=== PATIENT | male | born 1970 | race Caucasian/White ===

== ENCOUNTER 2019-08-22 17:36 | Emergency (ER) | payer OTHER ==
[~2019-08-22] VITALS: Ht 172.7 cm; Wt 93.0 kg
[~2019-08-22 17:36] MED LIST: CARAFATE 1 GM TA1 G1 PO; FLEXERIL PO; LEVAQUIN 500 M500 M2 PO; LISINOPRIL10 MG PO; OMEPRAZOLE40 MG PO; PROTONIX40 M2 PO; TYLENOL EXTRA500 MG PO
[2019-08-22] MEDS ORDERED: CARAFATE1 GM PO (17:44)
[2019-08-22 19:17] VITALS: BP 126/93
--- NOTE | 2019-08-23 13:22 | EKG ---
[place] [address] ELECTROCARDIOGRAM REPORT Name: TAMRA WEBB [facility] [id number] Admission: 08/22/19 Attend Phys: Discharge: 08/22/19 Date of : 72 Report #: [id number] THIS REPORT FOR: //name// [facility] ED Test Date: 2019-08-22 Test Time: 17:47:57 Pat Name: TAMRA WEBB Department: Room: Gender: M Clinical Project Manager: : [id number] Requested By: Daphne Abraham Order Number: [id number] MD: Chidi Faustin Measurements Intervals [place] Rate: 67 P: 20 MA: 166 QRS: 76 QRSD: 107 T: 60 QT: 403 QTc: 426 Interpretive Statements Sinus rhythm Abnormal R-wave progression, late transition Compared to ECG 09/02/2017 00:00:52 Myocardial infarct finding no longer present Electronically Signed On 08-23-2019 13:22:18 CDT by Chidi Faustin [email or web address] <ELECTRONICALLY SIGNED> By: Chidi Faustin MD, [facility] 08/23/19 [id number] 46 Chidi Faustin MD, FAC /EPI
== END 2019-08-22 19:18 | disposition home or self-care (01) ==
LOC: M.ERS 17:36
DX: T18.108A Unspecified foreign body in esophagus causing other injury, initial encounter (principal); I10 Essential (primary) hypertension; M19.90 Unspecified osteoarthritis, unspecified site; Y92.89 Other specified places as the place of occurrence of the external cause

== ENCOUNTER 2019-12-16 21:06 | Emergency (ER) | payer OTHER ==
[~2019-12-16] VITALS: Ht 170.2 cm; Wt 94.3 kg
[~2019-12-16 21:06] MED LIST changes: +CARAFATE1 GM PO
[2019-12-16 21:45] LABS: URINE BILIRUBIN NEGATIVE (Negative); URINE BLOOD NEGATIVE (Negative); URINE CLARITY CLEAR; URINE COLOR YELLOW; URINE GLUCOSE-RANDOM NEGATIVE (Negative); URINE KETONES NEGATIVE (Negative); URINE LEUKOCYTES-REFLEX NEGATIVE (Negative); URINE NITRITE-REFLEX NEGATIVE (Negative); URINE PROTEIN NEGATIVE (Negative); URINE UROBILINOGEN 0.2 E.U./dl (0.2-1.0)
[2019-12-16 21:59] LABS: AMP/METHAMP POSITIVE (Negative); BARBITURATES Negative (Negative); BENZODIAZEPINES Negative (Negative); COCAINE Negative (Negative); METHADONE Negative (Negative); OPIATES Negative (Negative); PCP Negative (Negative); THC POSITIVE (Negative)
[2019-12-16 22:03] LABS: ABSOLUTE BASOPHILS 0.1 thou/uL (0.0-0.2); ABSOLUTE EOSINOPHILS 0.2 thou/uL (0.0-0.7); ABSOLUTE LYMPHOCYTES 3.4 thou/uL (0.8-5.3); ABSOLUTE MONOCYTES 1.2 thou/uL (0.0-1.2); ABSOLUTE NEUTROPHILS 4.5 thou/uL (1.6-8.1); BASOPHILS 1.3 %; EOSINOPHILS 1.9 %; HEMATOCRIT 47.2 % (42.0-52.0); HEMOGLOBIN 16.2 gm/dL (14.0-18.0); LYMPHOCYTES 36.6 %; MCH 28.3 pg (26.0-34.0); MCHC 34.3 g/dL (28.0-37.0); MCV 82.4 fL (80.0-100.0); MONOCYTES 12.5 %; MPV 8.1 fl. (7.2-11.1); NUCLEATED RBCS 0 /100WBC; PLATELET COUNT* 317 thou/uL (150-400); POLYS 47.7 %; RBC 5.72 mil/uL (4.50-6.00); RDW-CV 13.1 % (10.5-14.5); WBC 9.4 thou/uL (4.0-11.0)
[2019-12-16 22:11] LABS: CALCIUM 8.4 mg/dL (8.5-10.1); CREATININE 1.2 mg/dL (0.6-1.3); POTASSIUM 4.1 mmol/L (3.5-5.1); TOTAL BILIRUBIN 0.5 mg/dL (<0.1-1.0); TOTAL PROTEIN 7.7 g/dL (6.4-8.2)
[2019-12-16 22:56] VITALS: BP 125/85
== END 2019-12-16 22:57 | disposition home or self-care (01) ==
LOC: M.ERS 21:06
PROVIDERS: Personal Emergency Response Attendant
DX: F15.10 Other stimulant abuse, uncomplicated (principal); H57.13 Ocular pain, bilateral; I10 Essential (primary) hypertension; M19.90 Unspecified osteoarthritis, unspecified site

== ENCOUNTER 2020-08-05 11:02 | Emergency (ER) | payer OTHER ==
[~2020-08-05] VITALS: Ht 172.7 cm; Wt 95.3 kg
[2020-08-05] MEDS ORDERED: NORCO 5-325 TA1 EAC2 PO (11:28)
[2020-08-05] MEDS ORDERED: AMOXICILLIN 50500 MG PO (11:28)
[2020-08-05] MEDS ORDERED: CIPROFLOXIN HC2.5 M1 OTIC (11:34)
[2020-08-05 12:01] VITALS: BP 132/70
== END 2020-08-05 12:02 | disposition home or self-care (01) ==
LOC: M.ERS 11:02
DX: H60.91 Unspecified otitis externa, right ear (principal); H66.91 Otitis media, unspecified, right ear; I10 Essential (primary) hypertension; M19.90 Unspecified osteoarthritis, unspecified site

== ENCOUNTER 2020-08-06 12:18 | Emergency (ER) | payer OTHER ==
[~2020-08-06] VITALS: Ht 172.7 cm; Wt 95.3 kg
[~2020-08-06 12:18] MED LIST changes: +AMOXICILLIN 50500 MG PO; +CIPROFLOXIN HC2.5 M1 OTIC; +NORCO 5-325 TA1 EAC2 PO
[2020-08-06 12:22] VITALS: BP 186/88
== END 2020-08-06 12:51 | disposition home or self-care (01) ==
LOC: M.ERS 12:18
DX: H60.91 Unspecified otitis externa, right ear (principal); I10 Essential (primary) hypertension; M19.90 Unspecified osteoarthritis, unspecified site

== ENCOUNTER 2020-08-08 15:44 | Emergency (ER) | payer OTHER ==
[~2020-08-08] VITALS: Ht 172.7 cm; Wt 95.3 kg
[2020-08-08 15:54] VITALS: BP 148/86
[2020-08-08] MEDS ORDERED: BACTRIM DS TAB1 EACH PO (16:10)
[2020-08-08] MEDS ORDERED: CORTISPORIN OTI10 M2 OTIC (16:10)
[2020-08-08] MEDS ORDERED: NORCO 5-325 TA1 EAC2 PO (16:10)
== END 2020-08-08 16:45 | disposition home or self-care (01) ==
LOC: M.ERS 15:44
DX: H60.11 Cellulitis of right external ear (principal); H60.01 Abscess of right external ear; I10 Essential (primary) hypertension; M19.90 Unspecified osteoarthritis, unspecified site

== ENCOUNTER 2020-08-27 02:23 | Emergency (ER) | payer OTHER ==
[~2020-08-27] VITALS: Ht 172.7 cm; Wt 93.9 kg
[~2020-08-27 02:23] MED LIST changes: +BACTRIM DS TAB1 EACH PO; +CORTISPORIN OTI10 M2 OTIC
[2020-08-27] MEDS ORDERED: BENADRYL25 MG PO (02:57)
[2020-08-27] MEDS ORDERED: NORCO 5-325 TA1 EAC2 PO (05:02)
[2020-08-27 05:26] VITALS: BP 116/74
== END 2020-08-27 05:28 | disposition home or self-care (01) ==
LOC: M.ERS 02:23
DX: S62.111A Displaced fracture of triquetrum [cuneiform] bone, right wrist, initial encounter for closed fracture (principal); R07.89 Other chest pain; M19.90 Unspecified osteoarthritis, unspecified site; I10 Essential (primary) hypertension; V89.9XXA Person injured in unspecified vehicle accident, initial encounter; Y93.89 Activity, other specified; Y92.89 Other specified places as the place of occurrence of the external cause; Y99.8 Other external cause status

== ENCOUNTER 2020-09-05 04:58 | Emergency (ER) | payer OTHER ==
[~2020-09-05] VITALS: Ht 172.7 cm; Wt 93.0 kg
[~2020-09-05 04:58] MED LIST changes: +BENADRYL25 MG PO
[2020-09-05 06:23] VITALS: BP 151/95
== END 2020-09-05 06:26 | disposition home or self-care (01) ==
LOC: M.ERS 04:58
DX: M25.531 Pain in right wrist (principal); R07.81 Pleurodynia; I10 Essential (primary) hypertension; M19.90 Unspecified osteoarthritis, unspecified site; V29.9XXA Motorcycle rider (driver) (passenger) injured in unspecified traffic accident, initial encounter; Y93.89 Activity, other specified; Y92.89 Other specified places as the place of occurrence of the external cause; Y99.8 Other external cause status

== ENCOUNTER 2021-04-25 13:47 | Emergency (ER) | payer OTHER ==
[~2021-04-25] VITALS: Ht 170.2 cm; Wt 93.4 kg
[2021-04-25] MEDS ORDERED: APAP W/CODEINE1 TA2 PO (14:39)
[2021-04-25 14:58] VITALS: BP 153/88
== END 2021-04-25 14:59 | disposition home or self-care (01) ==
LOC: M.ERS 13:47
DX: M25.511 Pain in right shoulder (principal); M19.90 Unspecified osteoarthritis, unspecified site; I10 Essential (primary) hypertension

== ENCOUNTER 2021-06-13 11:43 | Emergency (ER) | payer OTHER ==
[~2021-06-13] VITALS: Ht 170.2 cm; Wt 93.0 kg
[~2021-06-13 11:43] MED LIST changes: +APAP W/CODEINE1 TA2 PO
[2021-06-13] MEDS ORDERED: CEPHALEXIN500 MG PO (12:01)
[2021-06-13] MEDS ORDERED: CENTANY30 GM TOP (12:01)
[2021-06-13 12:19] VITALS: BP 111/86
== END 2021-06-13 12:19 | disposition home or self-care (01) ==
LOC: M.ERS 11:43
DX: L73.9 Follicular disorder, unspecified (principal); I10 Essential (primary) hypertension

== ENCOUNTER 2021-11-07 09:16 | Emergency (ER) | payer OTHER ==
[~2021-11-07 09:16] MED LIST changes: +CENTANY30 GM TOP; +CEPHALEXIN500 MG PO
== END 2021-11-07 10:00 | disposition left against medical advice (07) ==
LOC: M.ERS 09:16
DX: M79.641 Pain in right hand (principal); Z53.21 Procedure and treatment not carried out due to patient leaving prior to being seen by health care provider

== ENCOUNTER 2021-11-09 04:22 | Inpatient (IN) | payer OTHER ==
[~2021-11-09] VITALS: Ht 170.2 cm; Wt 95.3 kg
[2021-11-09 04:35] VITALS: BP 136/92
[2021-11-09 05:53] LABS: ABSOLUTE BASOPHILS 0.2 thou/uL (0.0-0.2); ABSOLUTE EOSINOPHILS 0.4 thou/uL (0.0-0.7); ABSOLUTE LYMPHOCYTES 2.8 thou/uL (0.8-5.3); ABSOLUTE MONOCYTES 1.6 thou/uL (0.0-1.2); ABSOLUTE NEUTROPHILS 8.9 thou/uL (1.6-8.1); BASOPHILS 1.5 %; EOSINOPHILS 3.1 %; HEMATOCRIT 42.2 % (42.0-52.0); HEMOGLOBIN 13.9 gm/dL (14.0-18.0); LYMPHOCYTES 20.3 %; MCH 27.5 pg (26.0-34.0); MCV 83.5 fL (80.0-100.0); MONOCYTES 11.5 %; MPV 8.5 fl. (7.2-11.1); NUCLEATED RBCS 0 /100WBC; PLATELET COUNT* 264 thou/uL (150-400); POLYS 63.6 %; RBC 5.05 mil/uL (4.50-6.00); RDW-CV 13.6 % (10.5-14.5)
[2021-11-09 06:25] LABS: ALBUMIN 3.4 g/dL (3.4-5.0); CALCIUM 8.1 mg/dL (8.5-10.1); POTASSIUM 3.6 mmol/L (3.5-5.1); TOTAL BILIRUBIN 0.5 mg/dL (<0.1-1.0); TOTAL PROTEIN 7.1 g/dL (6.4-8.2)
[2021-11-09 11:30] VITALS: BP 139/84
[2021-11-09 13:30] VITALS: BP 140/85
[2021-11-09 19:30] VITALS: BP 154/90
[2021-11-10 05:00] VITALS: BP 148/96
[2021-11-10 08:00] VITALS: BP 152/96
[2021-11-10 11:20] VITALS: BP 123/74
[2021-11-10] MEDS ORDERED: AUGMENTIN 875-1 EACH PO (13:37)
[2021-11-10] MEDS ORDERED: NORCO5 PO (13:37)
[2021-11-10 15:58] VITALS: BP 129/76
[2021-11-10 20:00] VITALS: BP 127/64
[2021-11-11 08:30] VITALS: BP 132/82
[2021-11-11 12:37] VITALS: BP 132/82
== END 2021-11-11 14:55 | disposition home or self-care (01) | DRG 603 ==
LOC: M.ERS 04:22 → M.TBA-ER 05:43 → M.TBA-CV 16:02 → M.2W 19:30
PROVIDERS: Personal Emergency Response Attendant; ADMIT Internal Medicine; ATTEND Internal Medicine
PROC: 0X9J0ZZ Drainage of Right Hand, Open Approach (ICD-10-PCS; principal; 2021-11-09)
DX: L03.113 Cellulitis of right upper limb (principal); R65.10 Systemic inflammatory response syndrome (SIRS) of non-infectious origin without acute organ dysfunction; L02.511 Cutaneous abscess of right hand; I10 Essential (primary) hypertension; M19.90 Unspecified osteoarthritis, unspecified site; F17.210 Nicotine dependence, cigarettes, uncomplicated; Z20.822 Contact with and (suspected) exposure to COVID-19; Z82.49 Family history of ischemic heart disease and other diseases of the circulatory system